=== PATIENT | male | born 1995 | race Hispanic/Latino ===

== ENCOUNTER 2018-07-06 08:15 | Day surgery (SDC) | payer OTHER ==
[2018-07-05 16:18] VITALS: BP 122/55
[~2018-07-06] VITALS: Ht 175.3 cm; Wt 63.4 kg
[2018-07-06] VITALS (13 sets, daily range): BP systolic 104–118; BP diastolic 52–73
[~2018-07-06 08:15] MED LIST: LACTATED RINGERS 1000ML 1,000 ML IV SCH
[2018-07-06] MEDS ORDERED: BUPIVACAINE/PF 0.25% 30ML VIAL IJ ONE (10:02)
[2018-07-06] MEDS ORDERED: FENTANYL CITRATE PF 50 MCG/1 ML 2ML VIAL ONE ×2 (10:35→10:50)
[2018-07-06] MEDS ORDERED: PROPOFOL 10 MG/ML 20ML VIAL IV ONE ×2 (10:35)
[2018-07-06] MEDS ORDERED: LIDOCAINE PF 2% 5ML ABBOJECT ONE (10:35)
[2018-07-06] MEDS ORDERED: ROCURONIUM 10MG/1ML SYR 10 MG/ML ML ONE (10:36)
[2018-07-06] MEDS ORDERED: MIDAZOLAM HCL 1 MG/ML 2ML VIAL ONE (10:37)
[2018-07-06] MEDS ORDERED: SUCCINYLCHOLINE CHLORIDE 20 MG/ML 10 ML VIAL ONE (10:37)
[2018-07-06] MEDS ORDERED: DEXAMETHASONE SOD PHOSPHATE 10MG/ML 1ML VIAL ONE (10:45)
[2018-07-06] MEDS ORDERED: ONDANSETRON HCL 4 MG/2 ML VIAL ONE (10:45)
[2018-07-06] MEDS ORDERED: GLYCOPYRROLATE 1 MG/5 ML SYRINGE ONE (10:46)
[2018-07-06] MEDS ORDERED: NEOSTIGMINE 5MG/5ML SYR IV ONE (10:46)
[2018-07-06] MEDS ORDERED: NALOXONE HCL 0.4 MG/1 ML ML ONE (11:33)
== END 2018-07-06 13:40 | disposition home or self-care (01) ==
LOC: DAH 08:15
PROVIDERS: ATTEND Surgery
DX: K40.90 Unilateral inguinal hernia, without obstruction or gangrene, not specified as recurrent (principal); Z98.890 Other specified postprocedural states; Z87.81 Personal history of (healed) traumatic fracture; F12.90 Cannabis use, unspecified, uncomplicated; Z72.89 Other problems related to lifestyle
CPT/HCPCS: 49505; A4450; A4452; C1729; C1781; J0330; J1100; J2001; J2250; J2310; J2405; J2704 ×2; J2710; J3010; J3490 ×2; J7120 ×2